=== PATIENT | male | born 2000 | race Two or more races ===

== ENCOUNTER 2023-12-07 17:45 | Emergency (ER) | payer MEDICAID, SELFPAY ==
--- NOTE | ~2023-12-07 | CT_ITS ---
EXAMINATION: CT HEAD WITHOUT CONTRAST CT CERVICAL SPINE WITHOUT CONTRAST CLINICAL INFORMATION: Neck pain after fall off ladder. Head injury. COMPARISON: None. TECHNIQUE: Contiguous axial imaging was performed from the skullbase to vertex without intravenous administration of contrast. Multidetector helical imaging was performed through the cervical spine. This CT examination was performed using dose optimization techniques as appropriate, variously including the following: *Automated exposure control *Adjustment of mA and/or kV according to patient size (this includes techniques or standardized protocols for targeted exams where dose is matched to indication/reason for exam; i.e. extremities or head) *Use of iterative reconstruction technique DLP: 1061 mGy-cm. FINDINGS: HEAD: There is no evidence of acute intracranial hemorrhage or territorial infarction. No abnormal mass effect or midline shift is seen. Murdock to white matter differentiation is well preserved. No extra-axial fluid collections are identified. The ventricles are normal in size. Brain parenchymal attenuation is normal. The osseous structures and soft tissues are normal. The mastoid air cells and visualized portions of the paranasal sinuses are fairly well aerated. CERVICAL SPINE: There are questionable very mild superior endplate concavities at the C4, C5, and C6 levels without osseous retropulsion. Mild reversal of the normal cervical lordosis. No subluxation is identified in the cervical spine. No central canal stenosis evident. The disc spaces are maintained. The atlantoaxial articulation is normally maintained. The paraspinal soft tissues are grossly normal. There is symmetric prominence of the palatine tonsils bilaterally. The lung apices are clear. CT/CT cervical spine wo IV con IMPRESSION: 1. No acute intracranial pathology. 2. Question of subtle very mild superior endplate compression deformities at the C4, C5, and C6 levels without osseous retropulsion. An MRI of the cervical spine can be obtained for further evaluation in order to assess for presence of marrow edema. Electronically signed by: Pavan Allen MD 12/07/2023 07:03 PM EDT
--- NOTE | ~2023-12-07 | XR_ITS ---
EXAMINATION: XR CHEST CLINICAL INFORMATION: Fall. Trauma. COMPARISON: None available. TECHNIQUE: Frontal view of the chest was obtained. 6:12 PM FINDINGS: No significant abnormality is noted involving the heart, lungs, mediastinum, bony thorax or soft tissues. XR/XR chest 1V IMPRESSION: Unremarkable examination. Electronically signed by: Kendrick Haq MD 12/07/2023 07:43 PM EDT RP
--- NOTE | ~2023-12-07 | XR_ITS ---
EXAMINATION: 1. Right foot. 2. Right ankle. CLINICAL INFORMATION: Foot pain. Ankle pain. COMPARISON: None. TECHNIQUE: 1. Right foot. 3 views 2. Right ankle. 3 views FINDINGS: 1. Right foot. No fracture. No dislocation. Joint spaces are normal. No soft tissue abnormality. 2. Right ankle. No fracture. No dislocation. Ankle mortise is congruent. No soft tissue abnormality. XR/XR ankle RT min 3V IMPRESSION: 1. Normal right foot. 2. Normal right ankle. Electronically signed by: Kendrick Haq MD 12/07/2023 07:42 PM EDT
--- NOTE | ~2023-12-07 | XR_ITS ---
EXAMINATION: 1. Right foot. 2. Right ankle. CLINICAL INFORMATION: Foot pain. Ankle pain. COMPARISON: None. TECHNIQUE: 1. Right foot. 3 views 2. Right ankle. 3 views FINDINGS: 1. Right foot. No fracture. No dislocation. Joint spaces are normal. No soft tissue abnormality. 2. Right ankle. No fracture. No dislocation. Ankle mortise is congruent. No soft tissue abnormality. XR/XR foot RT min 3V IMPRESSION: 1. Normal right foot. 2. Normal right ankle. Electronically signed by: Kendrick Haq MD 12/07/2023 07:42 PM EDT
[2023-12-07 17:53] VITALS: BP 106/63; PULSE 98; RESP 16; TEMP 37.2; O2SAT 97; BMI 24.3
--- NOTE | 2023-12-07 17:56 | ED_ITS ---
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 He reports that while getting ready to go to work he slipped down 1 step. He reports that he did not fall was able to catch himself. He reports he twisted his right foot/ankle. He complains of pain to the top of his right foot He is able to walk with a limp His pain is 6/10 Of note, the triage note states the patient fell off a ladder 2-3 hours ago. The patient is adamant that he did not fall at all, he was on the stairs and only missed 1 step. Related Data Allergies Allergy/AdvReac Type Severity Reaction Status Date / Time No Known Allergies Allergy Verified 12/07/23 17:58 Review of Systems Constitutional: Constitutional: Denies body ache(s), Denies chills, Denies fever(s), Denies frequent falls and Denies headache(s) ENT: Denies headache(s) and Denies neck pain Musculoskeletal: Musculoskeletal: Denies back pain, Reports arthralgias, Reports joint swelling, Reports limited range of motion and Denies neck pain Neurologic: Denies frequent falls and Denies headache(s) PMFSH Social History Social History Advance Directives: No Advance Directives Information Provided: No Physical Exam ED Vital Signs: Vital Signs - 24 hr 12/07/23 17:53 12/07/23 19:38 Temperature 98.9 F 98.3 F Pulse Rate 98 73 Respiratory Rate 16 16 Blood Pressure 106/63 104/59 L Pulse Oximetry 97 99 Oxygen Delivery Method Room Air Room Air BMI result Body Mass Index 24.3 Const General: healthy appearing, comfortable, no acute distress, alert and awake Nutritional Appearance: well nourished Orientation/consciousness: patient oriented x3 HENMT Head: Yes normocephalic and Yes atraumatic Eyes Eyelids: Yes eyelids normal Conjunctivae: conjunctivae normal Sclerae: sclerae normal Corneas: corneas normal Pupils: Equal, round and reactive pupils present EOM: EOMs intact bilaterally Neck Neck: Yes full ROM Resp Effort & Inspection: normal respiratory effort, able to speak in complete sentences and not labored Skin General skin exam: elasticity normal Neuro General: patient oriented x3 Cranial nerves: Yes Equal, round and reactive pupils present and Yes Bilaterally intact EOM present Cognition (Neuro): normal cognition Extrem Other: Patient has mild edema to the dorsum of the right foot. He is tender over the area of the proximal 2nd and 3rd metatarsals. There is no right ankle edema or tenderness to palpation of the right ankle. Achilles tenderness palpable and i ntact. Course Course Course Narrative: This is an RME done by AJAY Don: Additional HPI, ROS, PE not included below will be deferred to primary provider. 23-year-old male with no significant past medical history presenting after fall from ladder. Complaining of right ankle pain. Not on blood thinners, denies head strike and loss of consciousness. Denies nausea or vomiting Appearance: Alert.? Oriented X3.? No acute cardiopulmonary distress distress.? Head: Normocephalic, atraumatic CVS: Pulses normal.? Respiratory: No respiratory distress.? Skin: ? Normal skin color. Extremities: Edema to R foot/ankle. 2+ DP and PTs b/l Neuro: Oriented X 3.? No motor deficit.? No sensory deficit. Medical Decision Making Medical Decision Making MDM Narrative: 23-year-old male presents for evaluation after he slipped and rolled his right foot/ankle. X-rays are negative for fracture. He head CT scan of the cervical spine and brain ordered in triage. He did not fall, hit his head or neck. He d id not lose consciousness. He has no cervical spine tenderness and has full range of motion of the cervical spine. Despite the CT read of possible endplate erosion, this is likely an incidental finding, there is no findings to suggest a cervical fracture and it is not consistent with the history. MRI deferred at this time Patient be discharged at this time Differential Diagnosis Differential Diagnoses: The differential diagnosis associated with the presentation includes Ankle sprain Ankle fracture Ankle dislocation Foot pain Foot sprain Independent Interpretation I performed an independent interpretation of an: Plain X-Ray Interpretation: Agree with Radiology interpretation, no obvious fractures Radiology Impression Discussion of test interpretation with radiology: I have reviewed the radiologist's reading. Radiologist Impression: CT/CT cervical spine wo IV con IMPRESSION: 1. No acute intracranial pathology. 2. Question of subtle very mild superior endplate compression deformities at the C4, C5, and C6 levels without osseous retropulsion. An MRI of the cervical spine can be obtained for further evaluation in order to assess for presence of marrow edema. XR/XR foot RT min 3V IMPRESSION: 1. Normal right foot. 2. Normal right ankle. Electronically signed by: Kendrick Haq MD 12/07/2023 07:42 PM EDT RP FINDINGS: No significant abnormality is noted involving the heart, lungs, mediastinum, bony thorax or soft tissues. XR/XR chest 1V IMPRESSION: Unremarkable examination. Discharge Plan Discharge Clinical Impression: Right foot sprain Patient Disposition: Home, Self-Care Instructions: Foot Sprain (ED) Additional Instructions: Your x-ray show no evidence of fracture. You likely have a foot sprain. Elevate the foot above your heart while resting. Use ice, ibuprofen and Tylenol Follow-up with your primary doctor, return for new or worsening symptoms Print Language: [place]
[2023-12-07 19:38] VITALS: BP 104/59; PULSE 73; RESP 16; TEMP 36.8; O2SAT 99
[2023-12-07 20:16] VITALS: BP 104/59; PULSE 73; RESP 16; TEMP 36.8; O2SAT 99
== END 2023-12-07 20:16 | disposition home or self-care (01) ==
PROVIDERS: Emergency Provider Emergency Medicine
DX: S93.401A Sprain of unspecified ligament of right ankle, initial encounter (principal); W11.XXXA Fall on and from ladder, initial encounter; Y93.89 Activity, other specified; Y92.9 Unspecified place or not applicable; Y99.9 Unspecified external cause status; M25.571 Pain in right ankle and joints of right foot; M54.2 Cervicalgia
CPT/HCPCS: 70450; 71045; 72125; 73610; 73630; 99282; 99284